=== PATIENT | male | born 1960 | race Caucasian/White ===

== ENCOUNTER 2018-11-16 09:09 | Emergency (ER) | payer OTHER ==
[2018-11-16] MEDS ORDERED: Sodium Chloride 0.9% 10 ML Syringe FLUSH PRN (09:51)
--- NOTE | 2018-11-16 09:55 | EDM.PDOC ---
ED HPI GENERAL MEDICAL PROBLEM - General Chief Complaint: Abdominal Pain Stated Complaint: lower stomach pain Time Seen by Provider: 11/16/18 09:45 Source of Information: Reports: Patient, Family, RN Notes Reviewed History Limitations: Reports: No Limitations - History of Present Illness INITIAL COMMENTS - FREE TEXT/NARRATIVE: 58-year-old gentleman presents emergency department today complaint of abdominal pain, he states it's been going on for a week but has progressively gotten worse. He denies any problems with urination feels he may be slightly constipated but he still passing gas no shortness of breath no chest pain no fevers no dysuria he does feel full in his groin area Lower Abdomen Pain Score (Numeric/FACES): 9 - Related Data Allergies Allergy/AdvReac Type Severity Reaction Status Date / Time No Known Allergies Allergy Verified 11/16/18 09:19 Home Meds: Home Meds ALPRAZolam [Alprazolam] 0.5 mg PO ASDIRECTED PRN 11/16/18 [History] Sertraline HCl [Zoloft] 150 mg PO DAILY 11/16/18 [History] atorvaSTATin [Lipitor] 20 mg PO BEDTIME 11/16/18 [History] Past Medical History Cardiovascular History: Reports: High Cholesterol Musculoskeletal History: Reports: Arthritis, Fracture Neurological History: Reports: Migraines Psychiatric History: Reports: Anxiety, Depression Dermatologic History: Reports: Psoriasis - Past Surgical History GI Surgical History: Reports: Hernia Repair/Other Social & Family History - Tobacco Use Smoking Status *Q: Former Smoker Used Tobacco, but Quit: Yes Month/Year Tobacco Last Used: 30 years - Caffeine Use Caffeine Use: Reports: Coffee - Recreational Drug Use Recreational Drug Use: Yes Recreational Drug Type: Reports: Marijuana/Hashish ED ROS GENERAL - Review of Systems Review Of Systems: See Below Constitutional: Reports: No Symptoms HEENT: Reports: No Symptoms Respiratory: Reports: No Symptoms Cardiovascular: Reports: No Symptoms GI/Abdominal: Reports: Abdominal Pain, Constipation. Denies: Diarrhea, Flatus, Nausea, Vomiting : Reports: No Symptoms Musculoskeletal: Reports: No Symptoms Skin: Reports: No Symptoms Neurological: Reports: No Symptoms ED EXAM, GI/ABD - Physical Exam Exam: See Below Exam Limited By: No Limitations General Appearance: Alert, WD/WN, No Apparent Distress Throat/Mouth: No Airway Compromise Neck: Normal Inspection, Supple, Non-Tender, Full Range of Motion Respiratory/Chest: No Respiratory Distress, Lungs Clear, Normal Breath Sounds, No Accessory Muscle Use, Chest Non-Tender Cardiovascular: Regular Rate, Rhythm, No Murmur GI/Abdominal Exam: Normal Bowel Sounds, Soft, No Distention, Guarding, Tender ( Suprapubic area). No: Rigid, Rebound Rectal (Males) Exam: Normal Exam, Normal Rectal Tone, Prostate Normal. No: Hemorrhoids, Mass, Perirectal Abscess, Prostate Nodule, Tenderness Course - Vital Signs Last Recorded V/S: Last Vital Signs Temp 97.0 F 11/16/18 09:17 Pulse 75 11/16/18 09:17 Resp 16 11/16/18 09:17 BP 130/88 11/16/18 09:17 Pulse Ox 96 11/16/18 09:17 - Orders/Labs/Meds Orders: Active Orders 24 hr Category Date Time Status Peripheral IV Care [RC] . DIRECTED Care 11/16/18 09:52 Active Iopamidol [Isovue-300 (61%)] Med 11/16/18 10:15 Active 150 ml IV . DIRECTED Sodium Chloride 0.9% [Normal Saline] 1,000 ml Med 11/16/18 10:00 Active IV ASDIRECTED Sodium Chloride 0.9% [Normal Saline] 100 ml Med 11/16/18 10:15 Active IV ASDIRECTED Sodium Chloride 0.9% [Saline Flush] Med 11/16/18 09:51 Active 10 ml FLUSH ASDIRECTED PRN Peripheral IV Insertion Adult [OM.PC] Urgent Oth 11/16/18 09:51 Ordered Medication Orders Sodium Chloride (Normal Saline) 1,000 mls @ 500 mls/hr IV ASDIRECTED MELISSA Last Admin: 11/16/18 10:16 Dose: 500 mls/hr Sodium Chloride (Normal Saline) 100 mls @ 0 mls/hr IV ASDIRECTED MELISSA Stop: 11/16/18 20:00 Last Admin: 11/16/18 10:34 Dose: 80 mls/hr Iopamidol (Isovue-300 (61%)) 150 ml IV . DIRECTED MELISSA Stop: 11/16/18 20:00 Last Admin: 11/16/18 10:34 Dose: 150 ml Sodium Chloride (Saline Flush) 10 ml FLUSH ASDIRECTED PRN PRN Reason: Keep Vein Open Last Admin: 11/16/18 10:17 Dose: 10 ml Labs: Laboratory Tests 11/16/18 11/16/18 11/16/18 Range/Units 10:06 10:06 10:06 WBC 11.2 H (4.5-11.0) K/uL RBC 5.46 (4.30-5.90) M/uL Hgb 15.6 H (12.0-15.0) g/dL Hct 46.6 (40.0-54.0) % MCV 85 (80-98) fL MCH 29 (27-31) pg MCHC 34 (32-36) % Plt Count 280 (150-400) K/uL Neut % (Auto) 71 H (36-66) % Lymph % (Auto) 19 L (24-44) % [place] % (Auto) 8 H (2-6) % Eos % (Auto) 2 (2-4) % Baso % (Auto) 1 (0-1) % Sodium 141 (140-148) mmol/L Potassium 4.3 (3.6-5.2) mmol/L Chloride 105 (100-108) mmol/L Carbon Dioxide 26 (21-32) mmol/L Anion Gap 10.5 (5.0-14.0) mmol/L BUN 10 (7-18) mg/dL Creatinine 1.1 (0.8-1.3) mg/dL Est Cr Clr Drug Dosing 80.71 mL/min Estimated GFR (MDRD) > 60 (>60) Glucose 109 H (74-106) mg/dL Lactic Acid 1.1 (0.4-2.0) mmol/L Calcium 9.1 (8.5-10.1) mg/dL Total Bilirubin 0.7 (0.2-1.0) mg/dL AST 12 L (15-37) U/L ALT 21 (12-78) U/L Alkaline Phosphatase 85 (46-116) U/L Total Protein 7.2 (6.4-8.2) g/dL Albumin 3.4 (3.4-5.0) g/dL Globulin 3.8 H (2.3-3.5) g/dL Albumin/Globulin Ratio 0.9 L (1.2-2.2) Lipase 219 (73-393) U/L Urine Color Urine Appearance Urine pH (4.5-8.0) Ur Specific [place] (1.008-1.030) Urine Protein (NEGATIVE) mg/dL Urine Glucose (UA) (NEGATIVE) mg/dL Urine Ketones (NEGATIVE) mg/dL Urine Occult Blood (NEGATIVE) Urine Nitrite (NEGAITVE) Urine Bilirubin (NEGATIVE) Urine Urobilinogen (NORMAL) mg/dL Ur Leukocyte Esterase (NEGATIVE) Urine RBC (0-5) Urine WBC (0-5) Ur Epithelial Cells Amorphous Sediment Urine Bacteria Urine Mucus 11/16/18 Range/Units 10:28 WBC (4.5-11.0) K/uL RBC (4.30-5.90) M/uL Hgb (12.0-15.0) g/dL Hct (40.0-54.0) % MCV (80-98) fL MCH (27-31) pg MCHC (32-36) % Plt Count (150-400) K/uL Neut % (Auto) (36-66) % Lymph % (Auto) (24-44) % [place] % (Auto) (2-6) % Eos % (Auto) (2-4) % Baso % (Auto) (0-1) % Sodium (140-148) mmol/L Potassium (3.6-5.2) mmol/L Chloride (100-108) mmol/L Carbon Dioxide (21-32) mmol/L Anion Gap (5.0-14.0) mmol/L BUN (7-18) mg/dL Creatinine (0.8-1.3) mg/dL Est Cr Clr Drug Dosing mL/min Estimated GFR (MDRD) (>60) Glucose (74-106) mg/dL Lactic Acid (0.4-2.0) mmol/L Calcium (8.5-10.1) mg/dL Total Bilirubin (0.2-1.0) mg/dL AST (15-37) U/L ALT (12-78) U/L Alkaline Phosphatase (46-116) U/L Total Protein (6.4-8.2) g/dL Albumin (3.4-5.0) g/dL Globulin (2.3-3.5) g/dL Albumin/Globulin Ratio (1.2-2.2) Lipase (73-393) U/L Urine Color Yellow Urine Appearance Clear Urine pH 6.0 (4.5-8.0) Ur Specific [place] 1.015 (1.008-1.030) Urine Protein Negative (NEGATIVE) mg/dL Urine Glucose (UA) Normal (NEGATIVE) mg/dL Urine Ketones Negative (NEGATIVE) mg/dL Urine Occult Blood Moderate (NEGATIVE) Urine Nitrite Negative (NEGAITVE) Urine Bilirubin Negative (NEGATIVE) Urine Urobilinogen Normal (NORMAL) mg/dL Ur Leukocyte Esterase Negative (NEGATIVE) Urine RBC 0-5 (0-5) Urine WBC Not seen (0-5) Ur Epithelial Cells Not seen Amorphous Sediment Rare Urine Bacteria Not seen Urine Mucus Moderate Meds: Medications Generic Name Dose Route Start Last Admin Trade Name Freq PRN Reason Stop Dose Admin Sodium Chloride 1,000 mls @ 500 mls/hr 11/16/18 10:00 11/16/18 10:16 Normal Saline IV 500 mls/hr ASDIRECTED MELISSA Administration Sodium Chloride 100 mls @ 0 mls/hr 11/16/18 10:15 11/16/18 10:34 Normal Saline IV 11/16/18 20:00 80 mls/hr ASDIRECTED MELISSA Administration KVO Iopamidol 150 ml 11/16/18 10:15 11/16/18 10:34 Isovue-300 (61%) IV 11/16/18 20:00 150 ml . DIRECTED MELISSA Administration Sodium Chloride 10 ml 11/16/18 09:51 11/16/18 10:17 Saline Flush FLUSH 10 ml ASDIRECTED PRN Administration Keep Vein Open Departure - Departure Time of Disposition: 11:30 Disposition: Home, Self-Care 01 Condition: Fair Clinical Impression: Diverticulitis - Discharge Information Instructions: Diverticulitis, Diverticulitis, [id number] Referrals: PCP,None [Primary Care Provider] - Forms: ED Department Discharge Additional Instructions: Take full course of antibiotics, use Tylenol or Motrin as needed for pain control, Please followup with your primary care provider in 5-7 days if not better, please call return to the emergency department with worsening of symptoms. - My Orders Last 24 Hours: My Active Orders 11/16/18 09:51 Sodium Chloride 0.9% [Saline Flush] 10 ml FLUSH ASDIRECTED PRN Peripheral IV Insertion Adult [OM.PC] Urgent 11/16/18 09:52 Peripheral IV Care [RC] . DIRECTED 11/16/18 10:00 Sodium Chloride 0.9% [Normal Saline] 1,000 ml IV ASDIRECTED 11/16/18 10:15 Iopamidol [Isovue-300 (61%)] 150 ml IV . DIRECTED Sodium Chloride 0.9% [Normal Saline] 100 ml IV ASDIRECTED - Assessment/Plan Last 24 Hours: My Active Orders 11/16/18 09:51 Sodium Chloride 0.9% [Saline Flush] 10 ml FLUSH ASDIRECTED PRN Peripheral IV Insertion Adult [OM.PC] Urgent 11/16/18 09:52 Peripheral IV Care [RC] . DIRECTED 11/16/18 10:00 Sodium Chloride 0.9% [Normal Saline] 1,000 ml IV ASDIRECTED 11/16/18 10:15 Iopamidol [Isovue-300 (61%)] 150 ml IV . DIRECTED Sodium Chloride 0.9% [Normal Saline] 100 ml IV ASDIRECTED Plan: Assessment Acuity = acute Site and laterality = diverticulitis Etiology = unknown etiology Manifestations = abdominal pain Location of injury = Home Lab values = CBC, CMP, urinalysis unremarkable CT scan of the abdomen is consistent with diverticulitis Plan Elected to treat Augmentin 875 by mouth twice a day 10 days follow-up primary care in 5-7 days if no improvement This note was dictated using [employer] voice recognition software please call with any questions on syntax or grammar.
[2018-11-16] MEDS ORDERED: Sodium Chloride 0.9% 1,000 ML IV SCH (10:00)
[2018-11-16] MEDS ORDERED: Sodium Chloride 0.9% 100 ML IV SCH (10:15)
[2018-11-16] MEDS ORDERED: Iopamidol 612 MG/ML 150 ML Bottle IV SCH (10:15)
--- NOTE | 2018-11-16 11:08 | CRLCT ---
INDICATION: suprapubic pain Indication: Suprapubic pain. Technique: CT of the abdomen and pelvis. 150 cc of Isovue-300 IV. Coronal/sagittal reconstruction images. Comparison: None. Findings: Lung bases: There is no pleural or pericardial effusion. The heart size is normal. There is dependent atelectasis. There is no acute airspace disease. There is no basilar pneumothorax. Abdomen/pelvis: Hepatic morphology is normal. There are a few low-density liver lesions, which may represent benign cysts. Spleen size is normal. No adrenal mass. Symmetric nephrograms. No solid renal mass. No perinephric inflammatory change. Uniform enhancement of the pancreas. No evidence for pancreatic necrosis. No pancreatic mass. Prostate and urinary bladder within normal limits. Diverticulitis involving the lower sigmoid colon. Perienteric fat stranding, as seen on image 120, series 2. There is no pneumatosis. There is no portal venous gas. There is no drainable fluid collection. No secondary signs for appendicitis. No adenopathy by size criteria in the pelvis, retroperitoneum, or gastrohepatic ligament. Visceral artery branches are patent. Small ventral wall abdominal hernia containing fat. The bone windows demonstrate no lytic or blastic bone lesions. There are degenerative changes of the endplates of the thoracolumbar spine. On sagittal reconstruction images, the vertebral body heights are maintained. Impression: 1. Short segment of wall thickening about the lower sigmoid colon, consistent with diverticulitis. 2. No drainable fluid collection or free air. 3. After symptoms resolve, consider optical colonoscopy to exclude an underlying mass. 4. No abdominal/pelvic lymphadenopathy. Dictated by Carlos Smith MD @ 11/16/2018 11:07:20 AM Please note that all CT scans at this facility use dose modulation, iterative reconstruction, and/or weight-based dosing when appropriate to reduce radiation dose to as low as reasonably achievable. Dictated by: Carlos Smith MD @ 11/16/2018 11:07:37 (Electronically Signed)
== END 2018-11-16 11:55 | disposition home or self-care (01) ==
LOC: JP.ED 09:09
DX: K57.32 Diverticulitis of large intestine without perforation or abscess without bleeding (principal); F41.9 Anxiety disorder, unspecified; Z79.899 Other long term (current) drug therapy; Z87.891 Personal history of nicotine dependence
CPT/HCPCS: 36415; 74177; 80053; 81001; 83605; 83690; 85025; 96360; 99284; J7030

== ENCOUNTER 2019-02-16 08:21 | Day surgery (SDC) | payer OTHER ==
[2019-02-16] MEDS ORDERED: fentaNYL 100 MCG/2 ML SDV ONE (08:53)
[2019-02-16] MEDS ORDERED: Propofol 200 MG/20 ML SDV ONE ×2 (08:53→10:38)
[2019-02-16] MEDS ORDERED: Midazolam 1 MG/ML 2 ML SDV ONE (08:53)
[2019-02-16] MEDS ORDERED: Lactated Ringers 1,000 ML IV SCH (09:00)
--- NOTE | 2019-02-16 15:31 | OR ---
DATE OF PROCEDURE: 02/16/2019 PREOPERATIVE DIAGNOSIS: Recent history of diverticulitis. POSTOPERATIVE DIAGNOSES: 1. Diverticulosis, right and left side. 2. Recent history of diverticulitis. 3. Two small proximal right colon polyps. PROCEDURE PERFORMED: Colonoscopy to the cecum with biopsy resection of 2 small right colon polyps, sent to the laboratory as one specimen. SURGEON: Kam Domingo MD ANESTHESIA: IV anesthesia with monitored anesthesia care. INDICATION: This 58-year-old white male is referred for a colonoscopy because of the recent bout of diverticulitis. About 2 months ago, he had an attack. Within a month ago, it was resolved. I counseled him for a colonoscopy with possible biopsy and/or polypectomy, including risks and alternatives, and he gave his informed consent to proceed. DESCRIPTION OF PROCEDURE: The patient was placed in the left lateral decubitus position. IV anesthesia was administered by the Anesthesia Service. Time-out was held. A rectal exam was performed, which was unremarkable. The flexible video Olympus colonoscope was introduced through his anus, up his rectum, out his colon all the way to the cecum. Here, we saw a few scattered both left and right-sided diverticula. There was no bleeding or inflammation associated with them at this time. In the proximal right colon just distal to the cecum, we saw 2 small polyps adjacent to each other. These were removed with the biopsy forceps and sent to the laboratory as one specimen. The scope was then withdrawn with no other additional lesions noted. The scope was retroflexed in the rectum with the distal rectum appearing unremarkable. The scope was straightened and removed. He tolerated the procedure well. Kam Domingo MD /[id number]
== END 2019-02-16 12:00 | disposition home or self-care (01) ==
LOC: JP.SDS 08:21
PROVIDERS: ATTEND Surgery
DX: K57.30 Diverticulosis of large intestine without perforation or abscess without bleeding (principal); D12.2 Benign neoplasm of ascending colon; D36.15 Benign neoplasm of peripheral nerves and autonomic nervous system of abdomen; E78.00 Pure hypercholesterolemia, unspecified; F17.200 Nicotine dependence, unspecified, uncomplicated; F32.9 Major depressive disorder, single episode, unspecified; G47.33 Obstructive sleep apnea (adult) (pediatric)
CPT/HCPCS: 45380; J2250; J2704; J3010; J7120